=== PATIENT | female | born 1970 | race Caucasian/White ===

== ENCOUNTER 2025-01-04 12:10 | Emergency (ER) | payer OTHER, SELFPAY ==
[2025-01-04 12:34] VITALS: BP 152/102
[2025-01-04 13:06] LABS: Hematocrit 42.2 % (37.0-47.0); Hemoglobin 14.5 g/dL (12.0-16.0); Mean Corp Hgb Conc. 34.4 g/dL (33.0-37.0); Mean Corpuscular Volume 84.1 fL (81.0-99.0); Nucleated Red Blood Cells % 0 %; Platelet Count 293 10^3/uL (130-400); Red Cell Dist. Width 13.4 % (11.5-14.5)
[2025-01-04 13:30] LABS: ALT (SGPT) 22 U/L (0-35); AST (SGOT) 21 U/L (14-36); Albumin 4.5 g/dl (3.5-5.0); Alkaline Phosphatase 81 U/L (38-126); Blood Urea Nitrogen 16 mg/dl (7-17); Calcium 9.4 mg/dl (8.4-10.2); Carbon Dioxide 24 mmol/L (22-30); Chloride 102 mmol/L (98-107); Glucose 332 mg/dl (70-99); Potassium 4.9 mmol/L (3.5-5.1); Sodium 133 mmol/L (135-145); Total Protein 7.1 g/dl (6.3-8.2); eGFR > 60.00
[2025-01-04 13:40] LABS: Troponin I < 0.012 ng/ml
--- NOTE | 2025-01-04 14:24 | ED.GENMED ---
History of Present Illness
General
Chief Complaint: Chest Pain
Source: patient
Time Seen by Provider: 01/04/25 14:10
History of Present Illness
History of Present Illness:
This patient is a 54-year-old female presents emergency department with a variety of different complaints. She states for the last week or so she she has been feeling 'off'. She states she has a history of heat intolerance, and being outside this
week she has had episodes of feeling lightheaded and needed to come back inside. She also notes that last night she had a short-lived episode of left-sided chest pain described as 'not really pain but discomfort' that she thought might be
'indigestion'. This was not associated with radiation. She denies associated dyspnea, diaphoresis, nausea, vomiting with the chest discomfort. However, earlier in the day yesterday she did have 1 episode of vomiting. This was not associated with
abdominal pain. She denies urinary symptoms, fever, chills. She does have mild lower back discomfort that feels muscular. She also feels more tired than usual.
Past History
Past History
ED Past Medical History: NIDDM, Psychiatric and Other (RSD, kidney infections, DJD, and ambulatory dysfunction ,chronic pain syndrome)
ED Past Surgical History: Gynecological
Social History
Tobacco: Smoker
Alcohol: None
Drug: None
Personal: Single
Living: with family
Employment: Disabled
Family History
Family History: Asthma and Other (Arthritis)
Phy Exam
Physical Exam
Physical Exam:
GENERAL: Alert , in no apparent distress
EYE: pupils equal and reactive
NECK: Supple, no significant adenopathy.
ENT: o/p clr, mm slightly dry
CARDIAC: Regular rate and rhythm .
LUNGS: Clear breath sounds bilaterally, no acute respiratory distress, no wheezes/rales/rhonchi
ABDOMEN: Soft, without focal tenderness, no r/g, no cvat
NEUROLOGICAL: Alert and oriented, no focal neuro deficits
SKIN: Warm and dry, skin intact.
MUSCULOSKELETAL: No edema, well perfused.
PSYCH: Normal and appropriate interaction.
Course
Orders/Labs/Results
Orders:
Orders
01/04/25 12:11
Electrocardiogram (*1) Urgent
Reason for Study: Chest Pain
EKG- Treatment ONCE
01/04/25 12:44
Complete Blood Count/With Diff Urgent
Comprehensive Metabolic Panel Urgent
Troponin I Urgent
CR Chest - 2 Views Urgent
Comment:
Reason For Exam: chest pain
01/04/25 14:24
0.9% Sodium Chloride 1000 ml [Nss] 1,000 ml IV BOLUS
01/04/25 15:14
Troponin I Urgent
Abnormal Lab Results
01/04/25
12:44
MPV 11.3 H fL
(7.4-10.4)
Neutrophils % 77.6 H %
(42.2-75.2)
Lymphocytes % 14.6 L %
(20.5-51.1)
Sodium 133 L mmol/L
(135-145)
Glucose 332 H mg/dl
(70-99)
01/04/25 12:44
01/04/25 12:44
Vital Signs
Initial and Last Documented VS:
Initial Vital Signs
Temp Pulse Resp BP Pulse Ox
98.4 F 84 16 152/102 97
01/04/25 12:34 01/04/25 12:34 01/04/25 12:34 01/04/25 12:34 01/04/25 12:34
Last Documented Vital Signs
Temp Pulse Resp BP Pulse Ox
98.4 F 84 16 152/102 97
01/04/25 12:34 01/04/25 12:34 01/04/25 12:34 01/04/25 12:34 01/04/25 14:25
*Pulse Oximetry
SaO2: 97
Oxygen Mode of Delivery: Room air
Update Note
Update Note:
Patient presents to the Emergency Department with __feeling 'off'
Number and Complexity of Problems Addressed at the Encounter
� Chronic conditions affecting care:
� Acute Exacerbation and/or Progression of Chronic Illness:
� Differential Diagnosis includes: DKA, renal insufficiency, ACS, electrolyte disorder, dehydration, etc. etc. etc.
Amount and/or Complexity of Data to be Reviewed and Analyzed
� I performed an independent evaluation of and my interpretation is:
EKG: Read by me, normal sinus rhythm, normal rate, normal axis, no acute ischemia
CT:
Xrays: Read by radiology NAD
Laboratory Studies: Hyperglycemia noted at 332 without associated acidosis, first troponin normal
Other:
� Review of other/old records reveals:
� Clinical information was obtained by an independent historian: Mom who is bedside
� Prescriptions/Medications Considered but not given:
� Further testing considered but not performed:
Risk of Complications and/or Morbidity or Mortality of Patient Management
� Social determinants of health affecting care:
� Discussion with other providers (PCP, Hospitalists, Consultants, etc):
� Escalation of care including admission/observation vs risk of discharge considered:4:11 PM extensive workup here essentially unremarkable with the exception of mild hyperglycemia. IV fluids given. Patient does not have
associated metabolic acidosis. No specific focal etiology identified for her complaints, recommend close follow-up and did discuss with her importance of this follow-up and reasons to return to the ER.
ED Attending Note
-
Portions of this chart may have been created with voice recognition software.� Occasional wrong word or��sound alike� substitutions may have occurred due to the inherent limitations of voice recognition software.
Discharge Plan
Departure
Patient Disposition: Home (Routine Discharge)
Date of Disposition: 01/04/25
Time of Disposition: 16:10
Patient with high blood pressure during this ER visit?: Yes
Condition: Good
Discharge Problem:
Chest pain
Instructions: Chest Pain PCP Follow Up, BLOOD PRESSURE
Prescriptions:
No Action
metformin 500 MG tablet
1,000 mg PO BID
ibuprofen [Advil Liqui-Gel] 200 MG capsule
200 mg PO PRN PRN (Reason: PAIN)
oxycodone-acetaminophen 5 MG/325 MG tablet
1 tab PO Q4HPRN PRN (Reason: PAIN)
insulin regular human [Novolin R Regular U100 Insulin] 100 UNITS/ML solution
0 units SC AC
Patient Comments:
SLIDING SCALE
insulin NPH isoph U-100 human [Novolin N NPH U-100 Insulin] 1,000 UNITS/10 ML suspension
30 units SC HS
gabapentin 300 MG capsule
600 mg PO HS
gabapentin 300 MG capsule
300 mg PO DAILY
fentanyl 25 MCG patch 72 hour
25 mcg transdermal Q72H
Patient Comments:
pt placed a new patch on her skin on 11/04/20
rosuvastatin 5 MG tablet
5 mg PO DAILY
duloxetine 60 MG capsule,delayed release(DR/EC)
60 mg PO HS
ascorbic acid (vitamin C) [Vitamin C] 500 MG tablet
500 mg PO DAILY
ferrous sulfate [FeroSul] 325 MG tablet
325 mg PO DAILY
apple cider vinegar 500 MG tablet
500 mg PO DAILY
coenzyme [id number] E 1 CAP capsule
1 cap PO DAILY
cholecalciferol (vitamin D3) 2,000 UNITS tablet
2,000 units PO DAILY
calcium carb-D3-mag ox-zinc ox [Bowen Mag Zinc Plus D3] 1 EACH tablet
1 ea PO DAILY
fluticasone furoate-vilanterol [Breo Ellipta] 1 EACH blister with device
1 puff inhalation DAILY
oxycodone 5 MG tablet
2.5 mg PO Q4HPRN PRN (Reason: moderate pain) 0RF
Referrals:
UNKNOWN - PT NOT,INTERVIEWE [Family Provider]
Activity Restrictions/Additional Instructions:
PLEASE SEE YOUR PRIMARY CARE DOCTOR IN THE NEXT FEW DAYS FOR CLOSE FOLLOW-UP. YOU HAD SOME MINOR LAB ABNORMALITIES THAT WE HAVE PRINTED OUT FOR YOU TO BRING TO YOUR DOCTOR. IF YOU DEVELOP FEVER, RECURRENT CHEST PAIN, SHORTNESS OF BREATH, REPEATED
VOMITING, ABDOMINAL PAIN, OR OTHER WORRISOME SIGNS, PLEASE RETURN TO THE ER IMMEDIATELY!
Interventions
Interventions:
*Risk Screen - Suicide Last Done: 01/04/25 12:34
*General Assessment Last Done: 01/04/25 12:34
*Neglect/Abuse Screening Last Done: 01/04/25 12:34
*ED- Fall Risk Assessment Last Done: 01/04/25 12:34
*ED COVID-19 Vaccine History Last Done: 01/04/25 12:34
Discharge Date and Time
Print Language: YORUBA
[2025-01-04] MEDS: NSS 1000 IV (15:14)
[2025-01-04 15:50] LABS: Troponin I < 0.012 ng/ml
== END 2025-01-04 16:44 | disposition home or self-care (01) ==
LOC: EMR 12:10
PROVIDERS: Emergency Medicine; EMERGENCY PHYSICIAN Emergency Medicine
DX: R07.89 Other chest pain (principal); E11.9 Type 2 diabetes mellitus without complications; F17.200 Nicotine dependence, unspecified, uncomplicated; Z82.61 Family history of arthritis
CPT/HCPCS: 99283; 96360; 71046; 80053; 84484; 85025; 93005

== ENCOUNTER 2025-03-03 20:18 | Emergency (ER) | payer OTHER, SELFPAY ==
[2025-03-03 20:26] VITALS: BP 130/93
[2025-03-03 22:12] VITALS: BP 135/81
--- NOTE | 2025-03-03 22:28 | ED.GENMED ---
History of Present Illness
<BRIANA Watson - Last Filed: 03/04/25 02:31>
General
Chief Complaint: Flank Pain
Source: patient
Exam Limitations: none
Time Seen by Provider: 03/03/25 22:17
Nursing documentation reviewed up to this point in time: agreed with
History of Present Illness
History of Present Illness:
Patient is a 54-year-old female with history of RSD PTSD anxiety diabetes hypertension presents to the ER for evaluation of left flank pain. Patient started with left flank pain for the past several days. She thought she had a kidney infection
called her family doctor who prescribed her Macrobid. She has taken 3 doses but complains of continued pain. She denies any urinary frequency urgency dysuria. She denies any fevers. She is nauseous but is not vomiting. She denies any trauma she
reports area is very tender to light touch but she denies any pain with movement.
She is on chronic narcotics including fentanyl patch and as needed oxycodone. She is managed by pain management
Past History
<BRIANA Watson - Last Filed: 03/04/25 02:31>
Past History
ED Past Medical History: NIDDM, Psychiatric and Other (RSD, kidney infections, DJD, and ambulatory dysfunction ,chronic pain syndrome)
ED Past Surgical History: Gynecological
Social History
Tobacco: Smoker
Alcohol: None
Drug: None
Personal: Single
Living: with family
Employment: Disabled
Family History
Family History: Asthma and Other (Arthritis)
Phy Exam
<BRIANA Watson - Last Filed: 03/04/25 02:31>
General Physical Exam
General Presentation: no apparent distress
General age: appears stated age
General Skin: warm and dry
General Habitus: obese
General Mental: alert
Cardiovascular Exam
Cardiovascular Exam: regular rate/rhythm, no murmur and normal peripheral pulses
Pulmonary Exam
Pulmonary Exam: lungs clear and no respiratory distress
Gastrointestinal Exam
Gastrointestinal Exam: non tender and soft
Neurological Exam
Neurological Exam: alert and oriented x3
Musculoskeletal Exam
Musculoskeletal Exam: full ROM and other (left flank with linear red rash )
Skin Exam
Skin Exam: normal color and warm/dry
Psychiatric Exam
Psychiatric Exam: normal mood/affect
Course
<BRIANA Watson - Last Filed: 03/04/25 02:31>
Orders/Labs/Results
Orders:
Orders
03/03/25 22:36
CT Abd/Pel (IV only)-DH only Urgent
Comment:
Reason For Exam: left abd /flank pain
03/03/25 22:43
0.9% Sodium Chloride 1000 ml [Nss] 1,000 ml IV BOLUS
Ondansetron Injectable [Zofran] 4 mg IV NOW STA
03/03/25 22:45
Complete Blood Count/With Diff Urgent
Comprehensive Metabolic Panel Urgent
03/03/25 23:10
Urinalysis Reflex To Culture Urgent
Date Specimen was Collected: 03/03/25
Time Specimen was Collected: 22:04
Urine Microscopic Reflex Cult Urgent
Urine Culture Urgent
LISA Source: U
Specimen Description:
Date Specimen was Collected: 03/03/25
Time Specimen was Collected: 22:04
03/04/25 00:38
Ondansetron Injectable [Zofran] 4 mg IV NOW STA
03/04/25 00:39
Ketorolac [Toradol] 15 mg IV NOW STA
03/04/25 02:23
Valacyclovir HCl [Valtrex] 1,000 mg PO NOW STA
Abnormal Lab Results
03/03/25 03/03/25
22:45 23:10
MPV 11.3 H fL
(7.4-10.4)
Lymphocytes % 19.1 L %
(20.5-51.1)
BUN 20 H mg/dl
(7-17)
Glucose 266 H mg/dl
(70-99)
Urine Ketones 2+ A
(Negative)
Leukocyte Esterase Rfl 1+ A
(Negative)
Urine RBC 3-6 A /HPF
(0-2)
Urine WBC (Reflex) 11-15 A /HPF
(0-5)
Urine Bacteria (Reflex) Few A
(Negative)
Urine Glucose 1+ A
(Negative)
Urine Albumin (Reflex) 1+ A
(Neg - Trace)
03/03/25 22:45
03/03/25 22:45
Vital Signs
Initial and Last Documented VS:
Initial Vital Signs
Temp Pulse Resp BP Pulse Ox
99.2 F 93 16 130/93 96
03/03/25 20:26 03/03/25 20:26 03/03/25 20:26 03/03/25 20:26 03/03/25 20:26
Last Documented Vital Signs
Temp Pulse Resp BP Pulse Ox
99.2 F 100 16 134/76 97
03/03/25 20:26 03/04/25 01:45 03/04/25 01:45 03/04/25 01:01 03/04/25 01:45
Research Advisor consulted with Physician
Research Advisor consulted with physician?: Yes
Name of Physician Consulted: Taurus
<Uma Condon MD - Last Filed: 03/04/25 02:17>
Orders/Labs/Results
Orders:
Orders
03/03/25 22:36
CT Abd/Pel (IV only)-DH only Urgent
Comment:
Reason For Exam: left abd /flank pain
03/03/25 22:43
0.9% Sodium Chloride 1000 ml [Nss] 1,000 ml IV BOLUS
Ondansetron Injectable [Zofran] 4 mg IV NOW STA
03/03/25 22:45
Complete Blood Count/With Diff Urgent
Comprehensive Metabolic Panel Urgent
03/03/25 23:10
Urinalysis Reflex To Culture Urgent
Date Specimen was Collected: 03/03/25
Time Specimen was Collected: 22:04
Urine Microscopic Reflex Cult Urgent
Urine Culture Urgent
LISA Source: U
Specimen Description:
Date Specimen was Collected: 03/03/25
Time Specimen was Collected: 22:04
03/04/25 00:38
Ondansetron Injectable [Zofran] 4 mg IV NOW STA
03/04/25 00:39
Ketorolac [Toradol] 15 mg IV NOW STA
03/04/25 02:23
Valacyclovir HCl [Valtrex] 1,000 mg PO NOW STA
Abnormal Lab Results
03/03/25 03/03/25
22:45 23:10
MPV 11.3 H fL
(7.4-10.4)
Lymphocytes % 19.1 L %
(20.5-51.1)
BUN 20 H mg/dl
(7-17)
Glucose 266 H mg/dl
(70-99)
Urine Ketones 2+ A
(Negative)
Leukocyte Esterase Rfl 1+ A
(Negative)
Urine RBC 3-6 A /HPF
(0-2)
Urine WBC (Reflex) 11-15 A /HPF
(0-5)
Urine Bacteria (Reflex) Few A
(Negative)
Urine Glucose 1+ A
(Negative)
Urine Albumin (Reflex) 1+ A
(Neg - Trace)
03/03/25 22:45
03/03/25 22:45
Vital Signs
Initial and Last Documented VS:
Initial Vital Signs
Temp Pulse Resp BP Pulse Ox
99.2 F 93 16 130/93 96
03/03/25 20:26 03/03/25 20:26 03/03/25 20:26 03/03/25 20:26 03/03/25 20:26
Last Documented Vital Signs
Temp Pulse Resp BP Pulse Ox
99.2 F 100 16 134/76 97
03/03/25 20:26 03/04/25 01:45 03/04/25 01:45 03/04/25 01:01 03/04/25 01:45
<BRIANA Watson - Last Filed: 03/04/25 02:31>
MDM/Problems Addressed
Differential Diagnosis Includes:
Not limited to renal colic, diverticulitis, UTI, pyelonephritis, shingles
MDM/Problems Addressed:
Patient with left flank pain however on exam rash is consistent with shingles. CAT scan negative for any findings. Urine questionable for infection will have patient continue on Macrobid however will prescribe acyclovir. Case discussed with ED
physician who evaluated patient
Chronic conditions affecting care:
chronic pain
<BRIANA Watson - Last Filed: 03/04/25 02:31>
*Radiology
Radiology exam reviewed: radiology read reviewed
*Pulse Oximetry
SaO2: 97
Oxygen Mode of Delivery: Room air
Patient hypoxic: no
*Critical Care Note
Total Time (30-74mins, 75-104mins- exclusive of procedures): Not Applicable
ED Attending Note
<BRIANA Watson - Last Filed: 03/04/25 02:31>
-
Portions of this chart may have been created with voice recognition software.� Occasional wrong word or��sound alike� substitutions may have occurred due to the inherent limitations of voice recognition software.
<Uma Condon MD - Last Filed: 03/04/25 02:17>
ED Attending Note
Patient seen and examined by attending physician: Yes
I performed the substantive portion of visit, reviewed & personally made and approve the management plan that is documented in note by myself or LENIN.: Yes
ED Attending Note:
54-year-old female presents emergency department with complaints of left-sided flank pain that radiates around to the left mid quadrant area, started 1 to 2 days ago, feels like a 'burning' also described as like a nerve pain. She denies associated
nausea, vomiting, fever, chills, dysuria, urgency, frequency, hematuria, chest pain, shortness of breath. On exam, patient awake alert pleasant but in pain. She moves about bed easily and pain is not worse with certain movements. Abdomen soft and
nontender. On exam of skin, patient appears to have a rash consistent with early shingles in the same area. I took a photo of this rash and showed it to the patient asked that she also take a photo to show to her doctor on Wednesday and close
follow-up. In the interim we will start her on Valtrex. She will also speak with her pain doctor tomorrow. Do not have findings to suggest intra-abdominal/kidney related etiology for her symptoms.
Discharge Plan
Departure
Patient Disposition: Home (Routine Discharge)
Date of Disposition: 03/04/25
Time of Disposition: 02:29
Patient with high blood pressure during this ER visit?: Yes
Condition: Fair
Covid-19: Not Applicable
Discharge Problem:
Herpes zoster
Instructions: Shingles
Prescriptions:
New
valacyclovir 1 gram tablet
1,000 mg PO TID Qty: 30 0RF
No Action
metformin 500 MG tablet
1,000 mg PO BID
ibuprofen [Advil Liqui-Gel] 200 MG capsule
200 mg PO PRN PRN (Reason: PAIN)
oxycodone-acetaminophen 5 MG/325 MG tablet
1 tab PO Q4HPRN PRN (Reason: PAIN)
insulin regular human [Novolin R Regular U100 Insulin] 100 UNITS/ML solution
0 units SC AC
Patient Comments:
SLIDING SCALE
insulin NPH isoph U-100 human [Novolin N NPH U-100 Insulin] 1,000 UNITS/10 ML suspension
30 units SC HS
gabapentin 300 MG capsule
600 mg PO HS
gabapentin 300 MG capsule
300 mg PO DAILY
fentanyl 25 MCG patch 72 hour
25 mcg transdermal Q72H
Patient Comments:
pt placed a new patch on her skin on 11/04/20
rosuvastatin 5 MG tablet
5 mg PO DAILY
duloxetine 60 MG capsule,delayed release(DR/EC)
60 mg PO HS
ascorbic acid (vitamin C) [Vitamin C] 500 MG tablet
500 mg PO DAILY
ferrous sulfate [FeroSul] 325 MG tablet
325 mg PO DAILY
apple cider vinegar 500 MG tablet
500 mg PO DAILY
coenzyme [id number] E 1 CAP capsule
1 cap PO DAILY
cholecalciferol (vitamin D3) 2,000 UNITS tablet
2,000 units PO DAILY
calcium carb-D3-mag ox-zinc ox [Bowen Mag Zinc Plus D3] 1 EACH tablet
1 ea PO DAILY
fluticasone furoate-vilanterol [Breo Ellipta] 1 EACH blister with device
1 puff inhalation DAILY
oxycodone 5 MG tablet
2.5 mg PO Q4HPRN PRN (Reason: moderate pain) 0RF
Referrals:
UNKNOWN - PT DOES,NOT KNOW [Family Provider]
Activity Restrictions/Additional Instructions:
As discussed a prescription for valacyclovir was sent to your pharmacy. Take 1 g 3 times a day daily for the next 10 days. Please follow-up with your family doctor for reevaluation of your symptoms in addition please follow-up with your pain
case management director. You may continue Macrobid. Return if any worsening of symptoms.
Interventions
Interventions:
*Risk Screen - Suicide Last Done: 03/03/25 20:27
*General Assessment Last Done: 03/03/25 22:14
*Neglect/Abuse Screening Last Done: 03/03/25 20:27
*ED- Fall Risk Assessment Last Done: 03/03/25 22:14
*ED COVID-19 Vaccine History Last Done: 03/03/25 22:14
DP-Znozix-Dbjkktgkif Assessment Last Done: 03/03/25 22:55
ED-Female Genitourinary Assessment Last Done: 03/03/25 22:55
Discharge Date and Time
Print Language: MAORI
[2025-03-03 22:35] VITALS: BMI 45.4
[2025-03-03] MEDS: ZOFRAN 4 MG IV (22:52)
[2025-03-03] MEDS: NSS 1000 IV (22:52)
[2025-03-03 22:54] LABS: Hematocrit 39.3 % (37.0-47.0); Hemoglobin 13.1 g/dL (12.0-16.0); Mean Corp Hgb Conc. 33.3 g/dL (33.0-37.0); Mean Corpuscular Volume 84.0 fL (81.0-99.0); Nucleated Red Blood Cells % 0 %; Platelet Count 281 10^3/uL (130-400); Red Cell Dist. Width 13.5 % (11.5-14.5)
[2025-03-03 23:22] LABS: ALT (SGPT) 19 U/L (0-35); AST (SGOT) 15 U/L (14-36); Albumin 4.2 g/dl (3.5-5.0); Alkaline Phosphatase 76 U/L (38-126); Blood Urea Nitrogen 20 mg/dl (7-17); Calcium 9.1 mg/dl (8.4-10.2); Carbon Dioxide 25 mmol/L (22-30); Chloride 106 mmol/L (98-107); Estimated Creatinine Clearance > 125 ml/min; Glucose 266 mg/dl (70-99); Potassium 4.3 mmol/L (3.5-5.1); Sodium 136 mmol/L (135-145); Total Protein 6.7 g/dl (6.3-8.2); eGFR > 60.00
[2025-03-03 23:24] LABS: Urine Character Clear (Clear)
[2025-03-03 23:36] LABS: Urine Squamous Cell 16-20 /LPF (Few)
[2025-03-04 00:43] VITALS: BP 111/81
[2025-03-04] MEDS: TORADOL 15 MG IV (00:44)
[2025-03-04] MEDS: ZOFRAN 4 MG IV (00:44)
[2025-03-04 01:01] VITALS: BP 134/76
[2025-03-04] MEDS: VALTREX 1000 MG PO (02:28)
--- NOTE | 2025-03-05 18:13 | EDRN ---
After discussion with patient, past medical history updated to include Chronic Regional pain syndrome type 1.
== END 2025-03-04 02:42 | disposition home or self-care (01) ==
LOC: EMR 20:18
PROVIDERS: EMERGENCY PHYSICIAN Emergency Medicine
DX: B02.9 Zoster without complications (principal); E11.9 Type 2 diabetes mellitus without complications; I10 Essential (primary) hypertension; F17.200 Nicotine dependence, unspecified, uncomplicated; G89.4 Chronic pain syndrome; Z79.891 Long term (current) use of opiate analgesic
CPT/HCPCS: 96374; 96375; 96376; 96361; 99284; 74177; 80053; 81003; 81015; 85025; 87086; Q9967